=== PATIENT | female | born 1940 | race Caucasian/White ===

== ENCOUNTER 2019-01-03 20:51 | Emergency (ER) | payer OTHER ==
[~2019-01-03] VITALS: Ht 154.9 cm; Wt 69.9 kg
[~2019-01-03 20:51] MED LIST: COZ50 PO; FERR140T2 PO; FOLI1TAB19 PO; IBUP200C97 PO; RANI-287 PO; SIMV20TA1 PO; [UNRECOGNIZED DRUG - CODE] PO
[2019-01-03 21:00] VITALS: BP 221/94
--- NOTE | 2019-01-03 21:00 | NUR ---
AMB TO BED 9 WITH STEADY GAIT
--- NOTE | 2019-01-03 21:10 | NUR ---
ACCU CHECK 110
--- NOTE | 2019-01-03 21:15 | NUR ---
78/F PRESENTS TO ED WITH FAMILY/FRIEND, C/O ELEVATED BP (221/94, HR 64, AT THIS TIME), X1 DAY. PT REPORTS VOMITING X1 EPISODE. PT REPORTS GENERALIZED HEADACHE X1 DAY. PT DENIES DIZZINESS, CP, SOB OR ABD PAIN. PT AWAKE AND ALERT, SKIN NORMAL WARM LOOSE AND DRY, RR EVEN AND UNLABORED. LUNG SOUNDS CLEAR BL. HR EVEN AND REGULAR. BS HYPOACTIVE X4, ABD SOFT FLAT NONTENDER. HX HTN, DM, HLD RX LOSARTAN 50MG PO AND LISINOPRIL-HCTZ 20MG-25MG PO; BOTH TAKEN 0800, AND ANOTHER AT 1800.
[2019-01-03] MEDS: ONDANSETRON 4 MG/2 ML VIAL IVP ONE (21:22)
--- NOTE | 2019-01-03 21:25 | NUR ---
PT TAKEN TO CT
--- NOTE | 2019-01-03 21:35 | NUR ---
PT RETURN FROM CT
[2019-01-03] MEDS: cloNIDine 0.1 MG TAB PO ONE (21:37)
--- NOTE | 2019-01-03 22:09 | NUR ---
PT LAYING IN BED, FAMILY AT BEDSIDE. DENIES HEADACHE OR ANY PAIN. DENIES NAUSEA. VS NOTED. ALL NEEDS MET.
[2019-01-03] MEDS: hydrALAZINE 20 MG/ML VIAL IVP ONE (22:15)
--- NOTE | 2019-01-03 22:20 | NUR ---
BP 165/77, HR 61, AT THIS TIME. PT DENIES HEADACHE OR NAUSEA. DR FOOTE MADE AWARE. PER ER MD, OK TO GIVE APRESOLINE 10MG IVP AT THIS TIME. ADMINISTERED MED WITH EDUCATION, PT VERBALIZED UNDERSTANDING, TOLERATED MED WELL.
--- NOTE | 2019-01-03 22:49 | NUR ---
BP 131/60, HR 61, PT DENIES CP, SOB, DIZZINESS, N/V. DR FOOTE MADE AWARE, OK FOR DISCHARGE.
[2019-01-03 22:54] VITALS: BP 131/60
--- NOTE | 2019-01-03 22:54 | NUR ---
Patient discharged with v/s stable. Written and verbal after care instructions given and explained. Patient verbalized understanding. Ambulatory with steady gait. All questions addressed prior to discharge. Advised to follow up with PMD.
== END 2019-01-03 22:54 | disposition home or self-care (01) ==
LOC: MED 20:51
DX: I10 Essential (primary) hypertension (principal); R51 Headache; R11.2 Nausea with vomiting, unspecified; R42 Dizziness and giddiness; K21.9 Gastro-esophageal reflux disease without esophagitis; Z79.899 Other long term (current) drug therapy
CPT/HCPCS: 70450; 82948; 96374; 96375; 99284; J0360; J2405